=== PATIENT | male | born 1990 | race Two or more races ===

== ENCOUNTER 2025-07-26 12:11 | Emergency (ER) | payer SELFPAY ==
[2025-07-26 12:39] VITALS: BP 155/90; PULSE 66; RESP 16; TEMP 37.1; O2SAT 99; BMI 22.4
--- NOTE | 2025-07-26 12:42 | EKG_ITS ---
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
--- NOTE | 2025-07-26 12:42 | XR_ITS ---
Exam: Chest 1 view, AP Date and time of exam: 04/28/2025, 1:09 p.m. Comparison: None Findings: Normal heart size. No mediastinal adenopathy. No acute fracture No pulmonary edema or pneumonia. Impression: No active disease.
--- NOTE | 2025-07-26 12:43 | PD.EDCHEST ---
ED Chest Pain RME/HPI General Chief Complaint: Chest Pain Stated Complaint: Chest pain X 1 week Time Seen by Provider: 07/26/25 12:19 Arrival date/time: 07/26/25 12:11 35-year-old male patient with no past medical history, came in for evaluation regarding left-sided chest pain. Patient complaining of left-sided chest pains been ongoing for the last 7 days, described as dull ache, severity 5 out of 10 radiating to the left shoulder. Denies any cough denies any shortness of breath denies any chest trauma or fall denies any fever. Denies any other complaints no medication was taken prior to ER visit. Related Data Allergies Allergy/AdvReac Type Severity Reaction Status Date / Time No Known Drug Allergies Allergy Verified 07/26/25 12:16 Review of Systems Review of Systems Narrative Review of Systems: Review of system reviewed and within normal limits except mentioned in HPI ED Exam Narrative Physical exam: VITAL SIGNS: Reviewed. GENERAL APPEARANCE: Alert and interactive, follows commands, no acute distress, HEAD AND FACE: Non-traumatic. ENT: PERRL, pink conjunctivitis, eyelid no trauma, Mucous membrane moist. NECK: Supple, nontender, no nuchal rigidity. CHEST: No tenderness, no crepitus, no paradoxical movement, no retractions. LUNGS: Clear, well ventilated, symmetric, no rales, no wheezing, no ronchi, no stridor, good breath sounds bilaterally. HEART: Regular rate, regular rhythm, + murmur, no gallops. ABDOMEN: Soft, positive bowel sounds, nondistended, no guarding, nontender, no rebound, no masses, RECTAL: Deferred. GENITAL: Deferred. NEUROLOGICAL: Gross motor function intact sensory function intact, Appropriate for age. MUSCULOSKELETAL: low back nontender, full range of motion. EXTREMITIES: Nontender, full range of motion. SKIN: Color pink, dry, no rash, no lacerations, no abrasions, no contusions. LYMPHATICS: Deferred. Course Quality Measures none Orders Category Date Time Status EKG (ED ONLY) *Do not use* NOW Care 07/26/25 12:42 Completed EKG (ED Only) Stat Exams 07/26/25 12:42 Draft XR chest 1V Stat Exams 07/26/25 12:42 Completed CBC [CBC] Stat Lab 07/26/25 12:53 Completed CMP [Comprehensive Metabolic Panel] Stat Lab 07/26/25 12:53 Completed Troponin I Stat Lab 07/26/25 12:53 Completed Vital Signs Vital signs: Vital Signs Temperature 98.7 F 07/26/25 12:39 Pulse Rate 66 07/26/25 12:39 Respiratory Rate 16 07/26/25 12:39 Blood Pressure 155/90 H 07/26/25 12:39 Pulse Oximetry (%) 99 07/26/25 12:39 Oxygen Delivery Method Room Air 07/26/25 12:39 Chest Pain MDM Narrative MDM Narrative:: 07/26/25 12:11 35-year-old male patient with no past medical history, came in for evaluation regarding left-sided chest pain. Patient complaining of left-sided chest pains been ongoing for the last 7 days, described as dull ache, severity 5 out of 10 radiating to the left shoulder. Denies any cough denies any shortness of breath denies any chest trauma or fall denies any fever. Denies any other complaints no medication was taken prior to ER visit. Patient is unremarkable came back unremarkable including normal troponin. EKG shows sinus rhythm, ventricular rate of 64 bpm, MO interval 126 MS, no ST segment elevation depression noted. Patient chest x-ray showed I personally reviewed and interpreted the x-ray of this patient. There is no acute abnormalities found, no infiltrates no pneumothorax no hemothorax normal chest x-ray. Review of other structures was without significant abnormal findings also. I additionally reviewed the radiologist report and agree with the interpretation. Patient was advised to closely follow-up. Temperature Regulator Pyrometer since I noticed murmur on physical examination Stable for discharge home Patient data External records reviewed:: None Clinical information provided by:: patient and family Social determinants that could affect healthcare access:: none Patient has the following chronic illnesses:: Plan How is presenting disease/condition affected by chronic disease/condition?: no chronic disease Evaluation data The following diagnostics were reviewed and interpreted by me:: lab results, radiology exam(s) and EKG tracing(s) Lab and/or radiology exams considered but not ordered:: None Interpretation Summary: See results MDM Medications / Prescriptions Medications or Prescriptions considered but not ordered:: None none Medication administrations:: None Consultations Consultation(s) initiated? (list below): No Diagnosis Chest Pain Differential Diagnosis: pneumothorax, atypical chest pain and chest pain Most likely diagnosis given after review of the tests above:: Chest pain Admission Indicated Admission indicated?: not indicated Admission Request Was there a request for admission?: No Disposition Plan Disposition Plan: Discharge Discharge Attestation Discharge Attestation: The patient and all family members were given an opportunity to ask questions and understood the discharge instructions. Discharge instructions specifically effects, indications for sooner follow up or return to the emergency department, and the expected course of current diagnosis. Patient condition: Stable Discharge Plan Plan Patient Disposition: HOME (Self Care) Discharge Disposition comment: Stable Prescriptions/Referrals Referrals: No Primary/Family,Physician [Primary Care Provider] - In 1 week Problem List Clinical Impression: Chest pain, Heart murmur Patient/Caregiver Discharge Instructions Discharge Activity: activity as tolerated Education Materials: Understanding a Heart Murmur Additional Instructions: Thank you for the opportunity for serving you today. You are stable for discharged . 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
[2025-07-26 13:00] LABS: Basophils # (Auto) 0.1 Thou/mm3 (0.0-0.2); Basophils % (Auto) 1 % (0-2.5); Eosinophils # (Auto) 0.3 Thou/mm3 (0.0-0.5); Eosinophils % (Auto) 4 % (0-10); Hematocrit 44.7 % (41.0-53.0); Hemoglobin 15.5 g/dL (13.5-16.0); Immature Granulocytes Auto 0.02 Thou/mm3 (0.00-0.00); Lymphocytes # (Auto) 2.4 Thou/mm3 (1.0-4.8); Lymphocytes % (Auto) 33 % (10-50); Mean Corpuscular HGB Conc 34.7 g/dl (31.0-37.0); Mean Corpuscular Hemoglobin 29.3 pg (25.0-35.0); Mean Corpuscular Volume 85 fL (80-100); Monocytes # (Auto) 0.5 Thou/mm3 (0.0-0.8); Monocytes % (Auto) 7 % (0-12); Neutrophils # (Auto) 4.1 Thou/mm3 (1.8-7.7); Neutrophils % (Auto) 56 % (37-80); Nucleated Red Blood Cell # 0.00 Thou/mm3 (0.00-0.00); Nucleated Red Blood Cell % 0 /100 WBC (0); Platelet Count 265 Thou/mm3 (140-440); RDW Standard Deviation 38.2 fL (35.1-43.9); Red Blood Count 5.29 Miln/mm3 (4.50-5.90); White Blood Count 7.4 Thou/mm3 (3.8-10.6)
[2025-07-26 13:18] LABS: Alanine Aminotransferase 43 U/L (10-49); Albumin, Serum 4.9 gm/dL (3.5-5.0); Albumin/Globulin Ratio 2.3 (1.2-2.2); Alkaline Phosphatase 107 U/L (46-116); Anion Gap 7 (7-16); Aspartate Amino Transferase 26 U/L (0-34); BUN/Creatinine Ratio 11 Ratio (12-20); Bilirubin,Total 0.6 mg/dL (0.3-1.2); Blood Urea Nitrogen 9 mg/dL (9-23); Calcium 9.3 mg/dL (8.3-10.6); Calcium (Corrected) 9.3 mg/dL (8.5-10.1); Carbon Dioxide 28.1 mMol/L (20.0-31.0); Chloride 107 mMol/L (98-107); Creatinine (Component) 0.8 mg/dL (0.6-1.3); Estimated Creatinine Clearance 113.8 mL/min (>60); Globulin 2.1 gm/dL (2.3-3.5); Glucose 114 mg/dL (74-106); Osmolality,Calculated 282 (275-295); Potassium 4.2 mMol/L (3.4-5.1); Sodium 142 mMol/L (136-145); Total Protein 7.0 gm/dL (5.7-8.2); Troponin I < 0.002 ng/mL (0.0-0.045); eGFR > 60 See Note
== END 2025-07-26 14:12 | disposition home or self-care (01) ==
PROVIDERS: Nurse Practitioner Family; Emergency Provider Emergency Medicine
DX: R01.1 Cardiac murmur, unspecified (principal)
CPT/HCPCS: 36415; 71045; 80053; 84484; 85025; 93005; 99283